=== PATIENT | male | born 1960 | race Two or more races ===

== ENCOUNTER 2024-07-26 13:31 | Inpatient (IN) | payer OTHER ==
[~2024-07-26] VITALS: Ht 167.6 cm; Wt 84.4 kg
[2024-07-26] MEDS ORDERED: TDAP [DIPH/PERTUSSIS/TET] 0.5 ML VIAL IM ONE (13:41)
[2024-07-26] MEDS: IV NS 0.9% 500 ML BAG IV ONE (14:02)
[2024-07-26] MEDS: TDAP [DIPH/PERTUSSIS/TET] 0.5 ML VIAL IM ONE (14:02)
[2024-07-26] MEDS: BACI/NEOM/POLY B OINT PKT 1 UDPKT PACKET TP ONE (14:02)
[2024-07-26 14:08] LABS: BASOPHILS % (AUTO) 0.3 % (0.0-2.0); EOSINOPHILS % (AUTO) 0.6 % (0.0-6.0); HEMATOCRIT 43 % (39-51); HEMOGLOBIN 14.4 g/dL (13.5-17.5); LYMPHOCYTES # (AUTO) 0.9 K/uL (0.8-4.8); LYMPHOCYTES % (AUTO) 13.4 % (20.0-44.0); MEAN CORPUSCULAR HEMOGLOBIN 29 PG (26.0-33.0); MEAN CORPUSCULAR HGB CONC 33 g/dl (31.0-36.0); MEAN CORPUSCULAR VOLUME 88 fL (80-96); MONOCYTES # (AUTO) 0.6 K/uL (0.1-1.30); MONOCYTES % (AUTO) 9.5 % (2.0-12.0); NEUTROPHILS # (AUTO) 4.9 K/uL (1.8-8.9); NEUTROPHILS % (AUTO) 76.2 % (43.0-81.0); PLATELET COUNT (AUTO) 194 K/uL (150-450); RED BLOOD CELL COUNT(AUTO) 4.92 MIL/uL (4.5-6.0); WHITE BLOOD COUNT (AUTO) 6.4 K/uL (4.3-11.0)
[2024-07-26 14:16] LABS: CARBON DIOXIDE 29 mmol/L (21-32); CHLORIDE 107 mmol/L (98-107); CREATININE 0.9 mg/dL (0.6-1.3); GLUCOSE 132 mg/dL (74-106); POTASSIUM 3.7 mmol/L (3.5-5.1); SODIUM SERUM 141 mmol/L (136-145); UREA NITROGEN, BLOOD 17 mg/dL (7-18)
[2024-07-26 15:01] LABS: THYROID STIMULATING HORMONE 4.35 uIU/mL (0.358-3.74)
[2024-07-26] MEDS ORDERED: LISI40TA13 PO (15:27)
[2024-07-26] MEDS ORDERED: FAMO20TA29 PO (15:27)
[2024-07-26] MEDS ORDERED: BACL10TA PO (15:27)
[2024-07-26] MEDS ORDERED: ATEN50TA PO (15:27)
[2024-07-26] MEDS ORDERED: ATOR20TA PO (15:27)
[2024-07-26] MEDS ORDERED: AMLO2.5T4 PO (15:27)
[2024-07-26] MEDS ORDERED: ASPI-1169 PO (15:27)
[2024-07-26] MEDS ORDERED: DOXA4TAB19 PO (15:27)
[2024-07-26] MEDS ORDERED: ONDANSETRON HCL/PF 4 MG/2 ML VIAL IVP PRN (16:00)
[2024-07-26] MEDS ORDERED: MAG HYDROX/AL HYDROX/SIMETH 30 ML UDC PO PRN (16:00)
[2024-07-26] MEDS: ATENOLOL 50 MG TABLET PO SCH (17:56)
[2024-07-26 20:00] VITALS: BP 126/67; TEMP 97.7; O2SAT 92; O2SAT 97
[2024-07-26] MEDS: IV NS 0.9% 1,000 ML IV PRN (21:29)
[2024-07-26] MEDS: methylPREDNISolone SOD SUCC 1,000 MG in IV NS 0.9% 250 ML IV ONE (21:29)
[2024-07-27 06:49] LABS: EOSINOPHILS % (AUTO) 0.1 % (0.0-6.0); HEMATOCRIT 44 % (39-51); HEMOGLOBIN 14.6 g/dL (13.5-17.5); LYMPHOCYTES # (AUTO) 0.4 K/uL (0.8-4.8); LYMPHOCYTES % (AUTO) 9.7 % (20.0-44.0); MEAN CORPUSCULAR HEMOGLOBIN 29 PG (26.0-33.0); MEAN CORPUSCULAR HGB CONC 33 g/dl (31.0-36.0); MEAN CORPUSCULAR VOLUME 89 fL (80-96); MONOCYTES % (AUTO) 0.7 % (2.0-12.0); NEUTROPHILS # (AUTO) 4.1 K/uL (1.8-8.9); NEUTROPHILS % (AUTO) 89.5 % (43.0-81.0); PLATELET COUNT (AUTO) 177 K/uL (150-450); RED BLOOD CELL COUNT(AUTO) 4.99 MIL/uL (4.5-6.0); RED CELL DISTRIBUTION WIDTH 13.9 % (11.5-15.0); WHITE BLOOD COUNT (AUTO) 4.6 K/uL (4.3-11.0)
[2024-07-27 07:08] LABS: CALCIUM, SERUM 9.7 mg/dL (8.5-10.1); CREATININE 0.9 mg/dL (0.6-1.3); MAGNESIUM 2.1 mg/dL (1.8-2.4); PHOSPHORUS 3.6 mg/dL (2.5-4.9); POTASSIUM 3.8 mmol/L (3.5-5.1)
[2024-07-27 07:30] VITALS: BP 118/74; TEMP 97.2; O2SAT 92
[2024-07-27] MEDS: LISINOPRIL (20MG) 20 MG TABLET PO SCH (08:28)
[2024-07-27] MEDS: ASPIRIN 81 MG TAB.CHEW PO SCH (08:28)
[2024-07-27] MEDS: AMLODIPINE BESYLATE 2.5 MG TABLET PO SCH (08:31)
[2024-07-27] MEDS: ATORVASTATIN 40 MG TABLET PO SCH (08:34)
[2024-07-27] MEDS: PANTOPRAZOLE 40 MG VIAL IV SCH (08:34)
[2024-07-27] MEDS: Z GUARD REMEDY 4 OZ OINT TP PRN (08:35)
[2024-07-27] MEDS: DOXAZOSIN MESYLATE (4 MG) 4 MG TABLET PO SCH (08:35)
[2024-07-27] MEDS ORDERED: methylPREDNISolone SOD SUCC 1,000 MG in IV NS 0.9% 250 ML IV SCH (09:00)
[2024-07-27] MEDS: THERAHONEY GEL 1.5 OZ TUBE TP SCH (13:57)
[2024-07-27 16:00] VITALS: BP 118/67; TEMP 98.4; O2SAT 90
[2024-07-27] MEDS: methylPREDNISolone SOD SUCC 1,000 MG in IV NS 0.9% 250 ML IV SCH (17:20)
[2024-07-27 20:00] VITALS: BP 133/75; TEMP 97.7; O2SAT 95
[2024-07-27] MEDS: POLYETHYLENE GLYCOL 3350 17 GM POWD.PACK PO SCH (21:37)
[2024-07-28 06:18] LABS: HEMATOCRIT 39 % (39-51); HEMOGLOBIN 12.7 g/dL (13.5-17.5); LYMPHOCYTES # (AUTO) 0.7 K/uL (0.8-4.8); LYMPHOCYTES % (AUTO) 10.7 % (20.0-44.0); MEAN CORPUSCULAR HEMOGLOBIN 29 PG (26.0-33.0); MEAN CORPUSCULAR HGB CONC 33 g/dl (31.0-36.0); MEAN CORPUSCULAR VOLUME 88 fL (80-96); MONOCYTES # (AUTO) 0.2 K/uL (0.1-1.30); MONOCYTES % (AUTO) 2.8 % (2.0-12.0); NEUTROPHILS % (AUTO) 86.5 % (43.0-81.0); PLATELET COUNT (AUTO) 188 K/uL (150-450); RED CELL DISTRIBUTION WIDTH 13.8 % (11.5-15.0); WHITE BLOOD COUNT (AUTO) 6.9 K/uL (4.3-11.0)
[2024-07-28 06:27] LABS: CALCIUM, SERUM 9.8 mg/dL (8.5-10.1); CREATININE 0.8 mg/dL (0.6-1.3); POTASSIUM 3.7 mmol/L (3.5-5.1)
[2024-07-28 08:00] VITALS: BP_SYST 107; BP_SYST 119; BP_DIAS 75; BP_DIAS 84; TEMP 97.7; TEMP 98.2; O2SAT 93; O2SAT 94
[2024-07-28 16:00] VITALS: BP 138/86; TEMP 98.1; O2SAT 97
[2024-07-28 20:00] VITALS: BP 107/54; TEMP 97.7; O2SAT 93
[2024-07-29 06:38] LABS: BASOPHILS % (AUTO) 0.1 % (0.0-2.0); HEMATOCRIT 39 % (39-51); HEMOGLOBIN 12.7 g/dL (13.5-17.5); LYMPHOCYTES # (AUTO) 0.7 K/uL (0.8-4.8); MEAN CORPUSCULAR HEMOGLOBIN 29 PG (26.0-33.0); MEAN CORPUSCULAR HGB CONC 33 g/dl (31.0-36.0); MEAN CORPUSCULAR VOLUME 89 fL (80-96); MONOCYTES # (AUTO) 0.3 K/uL (0.1-1.30); MONOCYTES % (AUTO) 4.7 % (2.0-12.0); NEUTROPHILS # (AUTO) 5.1 K/uL (1.8-8.9); NEUTROPHILS % (AUTO) 84.2 % (43.0-81.0); PLATELET COUNT (AUTO) 197 K/uL (150-450); RED BLOOD CELL COUNT(AUTO) 4.37 MIL/uL (4.5-6.0); RED CELL DISTRIBUTION WIDTH 13.6 % (11.5-15.0); WHITE BLOOD COUNT (AUTO) 6.1 K/uL (4.3-11.0)
[2024-07-29 06:50] LABS: CALCIUM, SERUM 9.3 mg/dL (8.5-10.1); CREATININE 0.9 mg/dL (0.6-1.3); POTASSIUM 3.6 mmol/L (3.5-5.1)
[2024-07-29 08:00] VITALS: BP 137/83; TEMP 98.2; O2SAT 94
[2024-07-29] MEDS: PANTOPRAZOLE 40 MG TABLET.DR PO SCH (10:14)
[2024-07-29] MEDS: ACETAMINOPHEN 325 MG TABLET PO PRN (12:24)
[2024-07-29] MEDS: TRAMADOL HCL 50 MG TABLET PO SCH (13:47)
[2024-07-29 16:00] VITALS: BP 114/64; TEMP 97.3; O2SAT 94
[2024-07-29 20:00] VITALS: BP 128/74; TEMP 97.3; O2SAT 92
[2024-07-30 07:08] LABS: BASOPHILS % (AUTO) 0.1 % (0.0-2.0); HEMATOCRIT 38 % (39-51); HEMOGLOBIN 12.9 g/dL (13.5-17.5); LYMPHOCYTES # (AUTO) 0.6 K/uL (0.8-4.8); LYMPHOCYTES % (AUTO) 10.5 % (20.0-44.0); MEAN CORPUSCULAR HEMOGLOBIN 30 PG (26.0-33.0); MEAN CORPUSCULAR HGB CONC 34 g/dl (31.0-36.0); MEAN CORPUSCULAR VOLUME 88 fL (80-96); MONOCYTES # (AUTO) 0.4 K/uL (0.1-1.30); MONOCYTES % (AUTO) 6.4 % (2.0-12.0); NEUTROPHILS # (AUTO) 4.7 K/uL (1.8-8.9); PLATELET COUNT (AUTO) 208 K/uL (150-450); RED BLOOD CELL COUNT(AUTO) 4.35 MIL/uL (4.5-6.0); RED CELL DISTRIBUTION WIDTH 13.8 % (11.5-15.0); WHITE BLOOD COUNT (AUTO) 5.7 K/uL (4.3-11.0)
[2024-07-30 07:17] LABS: CALCIUM, SERUM 9.4 mg/dL (8.5-10.1); CREATININE 0.8 mg/dL (0.6-1.3); POTASSIUM 3.7 mmol/L (3.5-5.1)
[2024-07-30 08:00] VITALS: BP 140/79; TEMP 98.4; O2SAT 90
[2024-07-30 16:00] VITALS: BP 126/72; TEMP 98.2; O2SAT 91
[2024-07-30 20:00] VITALS: BP 137/86; TEMP 97.7; O2SAT 96
[2024-07-31 00:53] VITALS: BP 137/86; TEMP 97.7; O2SAT 96
[2024-07-31 07:30] VITALS: BP 136/81; TEMP 97.9; O2SAT 90
[2024-07-31 08:33] LABS: EOSINOPHILS % (AUTO) 0.2 % (0.0-6.0); HEMATOCRIT 42 % (39-51); HEMOGLOBIN 13.9 g/dL (13.5-17.5); LYMPHOCYTES # (AUTO) 1.5 K/uL (0.8-4.8); LYMPHOCYTES % (AUTO) 18.7 % (20.0-44.0); MEAN CORPUSCULAR HEMOGLOBIN 29 PG (26.0-33.0); MEAN CORPUSCULAR HGB CONC 33 g/dl (31.0-36.0); MEAN CORPUSCULAR VOLUME 87 fL (80-96); MONOCYTES # (AUTO) 0.7 K/uL (0.1-1.30); MONOCYTES % (AUTO) 9.5 % (2.0-12.0); NEUTROPHILS # (AUTO) 5.6 K/uL (1.8-8.9); NEUTROPHILS % (AUTO) 71.6 % (43.0-81.0); PLATELET COUNT (AUTO) 208 K/uL (150-450); RED BLOOD CELL COUNT(AUTO) 4.82 MIL/uL (4.5-6.0); RED CELL DISTRIBUTION WIDTH 13.5 % (11.5-15.0); WHITE BLOOD COUNT (AUTO) 7.8 K/uL (4.3-11.0)
[2024-07-31 08:49] LABS: CALCIUM, SERUM 9.6 mg/dL (8.5-10.1); CREATININE 0.7 mg/dL (0.6-1.3); POTASSIUM 3.3 mmol/L (3.5-5.1)
[2024-07-31] MEDS: POTASSIUM CHLORIDE 20 MEQ TAB.PRT.SR PO SCH (09:29)
[2024-07-31] MEDS: LEVOFLOXACIN 750 MG /D5W 150ML 750 MG in PREMIX 1 EA IV SCH (12:05)
[2024-07-31] MEDS: methylPREDNISolone SOD SUCC 1,000 MG in IV NS 0.9% 250 ML IV SCH (15:34)
[2024-07-31 16:00] VITALS: BP 138/86; TEMP 97.3; O2SAT 95
[2024-07-31] MEDS ORDERED: IV NS 0.9% 250 ML IV ONE (16:43)
[2024-07-31] MEDS ORDERED: IOHEXOL-350 100 ML VIAL IV ONE (16:43)
[2024-07-31 20:00] VITALS: BP 136/89; TEMP 98.1; O2SAT 95
[2024-08-01 07:00] LABS: BASOPHILS % (AUTO) 0.1 % (0.0-2.0); HEMATOCRIT 43 % (39-51); HEMOGLOBIN 14.6 g/dL (13.5-17.5); LYMPHOCYTES # (AUTO) 0.5 K/uL (0.8-4.8); LYMPHOCYTES % (AUTO) 8.9 % (20.0-44.0); MEAN CORPUSCULAR HEMOGLOBIN 29 PG (26.0-33.0); MEAN CORPUSCULAR HGB CONC 34 g/dl (31.0-36.0); MEAN CORPUSCULAR VOLUME 87 fL (80-96); MONOCYTES # (AUTO) 0.1 K/uL (0.1-1.30); MONOCYTES % (AUTO) 1.9 % (2.0-12.0); NEUTROPHILS # (AUTO) 4.9 K/uL (1.8-8.9); NEUTROPHILS % (AUTO) 89.1 % (43.0-81.0); PLATELET COUNT (AUTO) 195 K/uL (150-450); RED BLOOD CELL COUNT(AUTO) 4.95 MIL/uL (4.5-6.0); RED CELL DISTRIBUTION WIDTH 13.4 % (11.5-15.0); WHITE BLOOD COUNT (AUTO) 5.5 K/uL (4.3-11.0)
[2024-08-01 07:08] LABS: CALCIUM, SERUM 9.7 mg/dL (8.5-10.1); CREATININE 0.8 mg/dL (0.6-1.3); POTASSIUM 4.1 mmol/L (3.5-5.1)
[2024-08-01 08:00] VITALS: BP 150/86; TEMP 98.1; O2SAT 98
[2024-08-01] MEDS: MAGNESIUM HYDROXIDE 30 ML UDC PO PRN (09:17)
[2024-08-01] MEDS ORDERED: COLL30OI TP (14:47)
[2024-08-01] MEDS ORDERED: PANT40TA49 PO (14:47)
[2024-08-01] MEDS ORDERED: ACET325T53 PO (14:47)
[2024-08-01] MEDS ORDERED: POLY17PO29 PO (14:47)
[2024-08-01] MEDS ORDERED: LEVO750T46 PO (14:47)
[2024-08-01 16:00] VITALS: BP 137/74; TEMP 97.3; O2SAT 98
[2024-08-01 20:00] VITALS: BP 133/76; TEMP 97.7; O2SAT 94
[2024-08-02 07:30] VITALS: BP 145/92; TEMP 97.7; O2SAT 93
[2024-08-02 08:00] VITALS: BP 139/80; TEMP 98; O2SAT 95
[2024-08-02 12:00] VITALS: BP 136/81; TEMP 98; O2SAT 95
[2024-08-03] MEDS ORDERED: LEVOFLOXACIN (250MG) 250 MG TABLET PO SCH (09:00)
== END 2024-08-02 13:45 | DRG 43 ==
LOC: EDBD 13:31 → ER 13:35 → MED 16:47
PROVIDERS: ADMIT Nurse Practitioner Acute Care; ATTEND Nurse Practitioner Acute Care
PROC: 0JBN0ZZ Excision of Right Lower Leg Subcutaneous Tissue and Fascia, Open Approach (ICD-10-PCS; principal; 2024-07-28)
DX: G35 Multiple sclerosis (principal); J15.69 Pneumonia due to other Gram-negative bacteria; S81.811A Laceration without foreign body, right lower leg, initial encounter; K21.9 Gastro-esophageal reflux disease without esophagitis; E66.9 Obesity, unspecified; E78.5 Hyperlipidemia, unspecified; I10 Essential (primary) hypertension; R53.1 Weakness; W19.XXXA Unspecified fall, initial encounter; Z68.30 Body mass index [BMI] 30.0-30.9, adult; X58.XXXA Exposure to other specified factors, initial encounter; Y93.9 Activity, unspecified; Y92.009 Unspecified place in unspecified non-institutional (private) residence as the place of occurrence of the external cause; R29.6 Repeated falls; G81.94 Hemiplegia, unspecified affecting left nondominant side
CPT/HCPCS: 36415; 70450-TC; 70496-TC; 70498-TC; 71045-TC; 73590-TC; 80048-TC; 83735-TC; 83880; 84100-TC; 84439-TC; 84443-TC; 84484-TC; 85025-TC; 90715; 93971-TC; 97110-TC; 97112-TC; 97530-TC; A4216; A4223; A6253; A6403; G0378; J1956; J2470; J2919; J7030; J7040; J7050; Q9967